=== PATIENT | female | born 1975 | race Caucasian/White ===

== ENCOUNTER → 2022-05-02 | Day surgery (SDC) | payer BC ==
[~2022-05-02] MED LIST: Lactated Ringers 1,000 ML IV SCH; Midazolam 1 MG/ML 2 ML SDV ONE; fentaNYL 50 MCG/ML SDV ONE
== END ==
LOC: CC.SDS 11:05
PROVIDERS: ATTEND Family Medicine
DX: K52.9 Noninfective gastroenteritis and colitis, unspecified (principal); K51.40 Inflammatory polyps of colon without complications; K63.89 Other specified diseases of intestine; D50.9 Iron deficiency anemia, unspecified; E78.5 Hyperlipidemia, unspecified; J30.2 Other seasonal allergic rhinitis; N94.6 Dysmenorrhea, unspecified; F32.9 Major depressive disorder, single episode, unspecified; N92.0 Excessive and frequent menstruation with regular cycle; Z79.899 Other long term (current) drug therapy; Z98.890 Other specified postprocedural states
CPT/HCPCS: 00812; 36415; 45380; 45385; 84703; J2250; J3010; J7120